=== PATIENT | female | born 1960 | race Caucasian/White ===

== ENCOUNTER → 2018-01-27 | Outpatient (CLI) | payer OTHER ==
[~2018-01-27] MED LIST: ALBU6.7H INH; COMMODE 3-IN-11 MIS; CPMMACHINE; DICL75TA PO; DIPH25TA31 PO; ENAL10TA PO; ENOX40P SQ; LEVO.125 PO; LEVO112T2 PO; MIRA3350 PO; NORC10TA2 PO; POLY119S PO; PREM0.3T2 PO; SYMB160A INH; TRAM50TA PO; WALKER WHEELS/F1 MIS; Z.0.COMMODE-3:1; Z.0.CPM; Z.0.WALKERFRONT
== END ==
LOC: CPRE 09:16
PROVIDERS: ATTEND Orthopaedic Surgery
DX: Z01.818 Encounter for other preprocedural examination (principal)

== ENCOUNTER 2018-02-12 05:18 | Inpatient (IN) | payer OTHER ==
[~2018-02-12] VITALS: Ht 167.6 cm; Wt 78.2 kg
[~2018-02-12 05:18] MED LIST changes: -CPMMACHINE; -DIPH25TA31 PO; -ENOX40P SQ; -LEVO.125 PO; -NORC10TA2 PO; -POLY119S PO; -Z.0.COMMODE-3:1; -Z.0.CPM; -Z.0.WALKERFRONT
[2018-02-12] MEDS ORDERED: POVIDONE IODINE 5% (ANTISEPSIS KIT) 4 APPLICATIONS EACH NARE PRN (05:45)
[2018-02-12] MEDS ORDERED: POVIDONE IODINE 7.5% SCRUB 118 ML BOTTLE TOPICAL SCH (05:45)
[2018-02-12] MEDS ORDERED: INSULIN HUMAN REGULAR 1,000 UNITS/10 ML VIAL SQ PRN (05:45)
[2018-02-12] MEDS ORDERED: DEXAMETHASONE SOD PHOS 20 MG/5 ML VIAL IV PUSH ONE (05:45)
[2018-02-12] MEDS ORDERED: CHLORHEXIDINE GLUCONATE 4% SOLN 120 ML BTL TOPICAL SCH (05:45)
[2018-02-12] MEDS ORDERED: SODIUM CHLORID 0.9% 500 ML IV PRN (05:45)
[2018-02-12] MEDS ORDERED: ceFAZolin 2 GM PREMIX 50 ML IV SCH (05:45)
[2018-02-12] MEDS ORDERED: CHLORHEXIDINE GLUCONATE 2 % 1 PACK (2 CLOTHS) TOPICAL PRN (05:45)
[2018-02-12] MEDS ORDERED: LACTATED RINGER'S 1000 ML IV PRN (05:45)
[2018-02-12] MEDS ORDERED: METOPROLOL TARTRATE 25 MG TAB PO PRN (05:45)
[2018-02-12] MEDS ORDERED: TRANEXAMIC ACID IV SCH ×2 (06:00→10:00)
[2018-02-12] MEDS ORDERED: VANCOMYCIN 1 GM/200 ML PREMIX ON-CALL IV SCH (06:00)
[2018-02-12] MEDS ORDERED: SODIUM CHLORIDE 0.9% IV SCH ×2 (06:00→10:00)
[2018-02-12] MEDS ORDERED: DIPH25TA31 PO (06:03)
[2018-02-12] MEDS ORDERED: GENTAMICIN SULFATE 80 MG/2 ML VIAL ONE (06:11)
[2018-02-12 06:14] VITALS: PULSE 69
[2018-02-12] MEDS ORDERED: ACETAMINOPHEN 1000 MG/100 ML 100 ML IV ONE (06:14)
[2018-02-12] MEDS ORDERED: FAT EMULSION 20% INJ 0 ML ONE (06:31)
[2018-02-12] MEDS ORDERED: BUPIVACAINE LIPOSOME PF 1.3% 20 ML VIAL ONE (06:38)
[2018-02-12] MEDS ORDERED: BUPIVACAINE PF 0.75% DEX-WATER INJ 2 ML AMP ONE ×2 (06:40→06:53)
--- NOTE | 2018-02-12 06:58 | HHI.DCPOC ---
Discharge Care Plan Diagnosis: (1) Status post total knee replacement, right (2) Primary localized osteoarthrosis, lower leg Your Health Problems Are: Difficulty with ADL Goals to Promote Your Health * To prevent worsening of your condition and complications * To maintain your health at the optimal level Directions to Meet Your Goals Take your medications as prescribed Follow your dietary instruction Follow activity as directed Keep your appointments as scheduled Take your immunizations and boosters as scheduled If your symptoms worsen call your PCP, if no PCP go to Urgent Care Center or Emergency Room Smoking is Dangerous to Your Health. Avoid second hand smoke Call the 24-hour hour crisis hotline for domestic abuse at Fam Arnold Feb 12, 2018 06:58
[2018-02-12] MEDS ORDERED: ROPIVACAINE PERI-ARTICULAR INJECTION. P-ARTICULR SCH ×5 (07:00)
--- NOTE | 2018-02-12 07:00 | HHI.FF ---
Face to Face Verification Diagnosis: (1) Primary localized osteoarthrosis, lower leg (2) Status post total knee replacement, right Physical Therapy Gait training, Transfer training, bed to chair Knee: Total knee Right LE Weight Bearing: WB as tolerated Right LE Range of Motion: Active ROM Nursing Nursing: Omari kong Dressing Changes: Do not change dressing Additional Instructions First dressing change in the office. I have seen patient Betsy Fuentes on 02/12/18. My clinical findings support the need for the requested home health care services because: Limited ability to care for self High risk of falls I certify that my clinical findings support that this patient is homebound because: Post-op weakness Unsteady gait/balance Fam Arnlod Feb 12, 2018 07:00
[2018-02-12] MEDS ORDERED: COMMODE 3-IN-11 MIS (07:02)
[2018-02-12] MEDS ORDERED: WALKER WHEELS/F1 MIS (07:02)
[2018-02-12] MEDS ORDERED: CPMMACHINE (07:02)
--- NOTE | 2018-02-12 08:40 | PD.OP ---
cc: Arian Wylie MD Operative Report Date of Surgery: Feb 12, 2018 Preoperative Diagnosis: Right knee severe arthritis Postoperative Diagnosis: Same Procedure: Right total knee arthroplasty Anesthesia: Spinal and adductor canal block Surgeon: Arian Wylie Supervising Law Enforcement Analyst(s): KARI Park The surgical procedure was assisted by my Advanced Registered Nurse Practitioner. My CARD WRITER HAND presence was necessary throughout this case for the manipulation and positioning of the surgical extremity. My CARD WRITER HAND was assisting me throughout the duration of this procedure. The skill set of an Advance Registered Nurse Practitioner was medically necessary to complete this procedure. During the surgical case, the factory maintenance technician was working at the back table and the Advance Registered Nurse Practitioner was directly assisting me. Operation and Findings: IMPLANTS: DePuy Attune: Patella: size 35. Femur, posterior stabilized size 6 narrow. Tibia, rotating platform size 5. Tibial insert, rotating platform, posterior stabilized size 5 mm thickness. ESTIMATED BLOOD LOSS: 75 cc TOURNIQUET TIME: 39 minutes at 250 mmHg pressure. JUSTIFICATION FOR PROCEDURE: The patient has end-stage osteoarthritis to the knee. There is an attached conservative measures pathway form in the chart that describes the nonoperative measures that were undertaken prior to consideration of surgical management. The patient understood the risks and benefits of surgical management. See my office notes for further details PROCEDURE: The patient was brought back to the operative theatre. Adequate anesthesia was obtained. The patient received intravenous vancomycin and Ancef. The lower extremity was prepped and draped in the usual sterile fashion.The leg was exsanguinated, the tourniquet was raised. A standard anterior incision was performed followed by medial parapatellar arthrotomy was performed. End-stage arthritis was identified. Osteotomy of the patella was performed. We drilled holes for the patella. We trialed the patella component. We placed an intramedullary guide into the distal femur. We ultimately resected 13 mm off of the distal femur in 5 degrees of valgus. The remnants of the ACL and PCL were resected. Osteotomy of the proximal tibia was performed, resecting 5 mm off of the medial side. This was done with 3 degrees of posterior slope using an extramedullary guide. The distal end of the guide was placed in the mid aspect of the ankle. The femur was sized, and four chamfer cuts were completed in 3 of external rotation. We then cut the central box in the distal femur to replace the PCL. We resected the remnants of the menisci and removed osteophytes off of the femur and tibia. We then trialed the knee. We punched the tibia for the keel, and then used standard technique to cement in components. Excess cement was removed. We trialed the knee again and the final polyethylene thickness was chosen to provide extension to 0 degrees, and flexion of 140 degrees to gravity. The ligaments were appropriately balanced. Lateral release was necessary to obtain excellent patellofemoral tracking. The tourniquet was released and adequate hemostasis was obtained. An intra- articular injection of a ropivacaine cocktail was injected. The posterior knee was inspected for excess cement, which was removed. The final polyethylene was put into position after thorough irrigation. We then closed deep fascia with a #2 Stratafix followed by skin with 2-0 Vicryl followed by Dermabond dressing. Postop plan is to weight-bear as tolerated. DVT prophylaxis will be performed with Lisandra, THERESA gamez, early mobilization, and Lovenox followed by aspirin. Arian Wylie MD Feb 12, 2018 08:40
[2018-02-12] MEDS ORDERED: ZOLPIDEM TARTRATE 5 MG TAB PO PRN (08:45)
[2018-02-12] MEDS ORDERED: ALUMINUM/MAGNESIUM/SIMETH 30 ML CUP PO PRN (08:45)
[2018-02-12] MEDS ORDERED: BISACODYL 10 MG SUPP RECTAL PRN (08:45)
[2018-02-12] MEDS ORDERED: ACETAMINOPHEN/HYDROcodone 325 MG/5 MG TAB PO PRN (08:45)
[2018-02-12] MEDS ORDERED: diphenhydrAMINE HCL 50 MG/ML VIAL IV PUSH PRN (08:45)
[2018-02-12] MEDS ORDERED: MORPHINE SULFATE 4 MG/ML INJ IV PUSH PRN (08:45)
[2018-02-12] MEDS ORDERED: Post-op Orders (for Pharmacy) XX ONE (08:45)
[2018-02-12] MEDS ORDERED: ALBUTEROL SULFATE 90 MCG/ACT HFA 8 GM INHALER INH PRN (08:45)
[2018-02-12] MEDS ORDERED: MAGNESIUM HYDROXIDE SUSP 30 ML CUP PO PRN (08:45)
[2018-02-12] MEDS ORDERED: NALOXONE HCL 0.4 MG/ML AMP IV PUSH PRN (08:45)
[2018-02-12] MEDS: BUDESONIDE-FORMOTEROL 160/4.5 MCG INHALER INH SCH ×2 (09:00→21:00)
[2018-02-12] MEDS ORDERED: POLYETHYLENE GLYCOL 17 GM PKG PO SCH ×3 (09:00→23:30)
[2018-02-12] MEDS: ENALAPRIL MALEATE 10 MG TAB PO SCH (09:00)
[2018-02-12] MEDS: SODIUM CHLOR 0.9% 1000 ML INJ 1,000 ML IV SCH ×2 (09:10→18:35)
[2018-02-12] MEDS ORDERED: MIDAZOLAM HCL 2 MG/2 ML VIAL ONE (09:11)
[2018-02-12] MEDS ORDERED: ONDANSETRON ODT 4 MG TAB SL PRN (09:15)
[2018-02-12] MEDS ORDERED: DO NOT ADM ANY ANTICOAGULANT DRUGS PRN (09:30)
--- NOTE | 2018-02-12 09:59 | RADRPT ---
EXAM DATE: 02/12/2018 9:52 AM EDT AGE/SEX: 57 years / Female INDICATIONS: Post-operative, total right knee replacement. CLINICAL DATA: This is the patient's initial encounter. Patient reports that signs and symptoms have been present for 1 day and indicates a pain score of 0/10. MEDICAL/SURGICAL HISTORY: None. . Prior right knee scope. COMPARISON: No prior exams available for comparison. FINDINGS: The patient is status post placement of total knee prosthesis. The prostatic components are well plac ed. There is air within the joint space and the soft tissues which is an expected postoperative findi ng. CONCLUSION: Successful total knee replacement. Electronically signed by: Diego Jaime MD 02/12/2018 9:58 AM EDT
[2018-02-12 12:00] VITALS: BP 140/86; PULSE 76; RESP 16; TEMP 97.6; O2SAT 98
[2018-02-12] MEDS ORDERED: ePHEDrine/NS 25 MG/5 ML SYRINGE IV ONE (12:00)
[2018-02-12] MEDS ORDERED: ONDANSETRON HCL 4 MG/2 ML VIAL IV PUSH ONE (12:00)
[2018-02-12] MEDS ORDERED: PROPOFOL 200 MG/20 ML AMP IV ONE (12:00)
[2018-02-12] MEDS ORDERED: LACTATED RINGER'S 1000 ML INJ 1,000 ML IV ONE (12:00)
--- NOTE | 2018-02-12 13:08 | PD.CONS ---
HPI Service [facility] Consult Requested By Dr. Wylie Reason for Consult Opinion and recommendation of treatment patient's hypertension, hypothyroidism Primary Care Physician [facility] Diagnoses: History of Present Illness 57-year-old white female with a history of hypertension, hypothyroidism, asthma , osteoarthritis was had long-term history of right hip pain despite conservative treatment. She electively underwent a right total hip arthroplasty with orthopedic surgery Dr. Wylie today. She states prior to the surgery she took MiraLAX daily and did not have any constipation problems. In the past she has had hemorrhoids that has been resolved. In addition she had no complaints of blood in the stools or black tarry stools. Review of Systems Constitutional: DENIES: Fatigue, Fever, Chills, Change in appetite Endocrine: DENIES: Heat/cold intolerance Eyes: DENIES: Blurred vision, Eye pain, Vision loss Ears, nose, mouth, throat: DENIES: Hearing loss, Nasal discharge, Throat pain, Ear Pain, Sinus Pain Respiratory: DENIES: Cough, Shortness of breath Cardiovascular: DENIES: Chest pain, Palpitations, Dyspnea on Exertion, Lower Extremity Edema Gastrointestinal: DENIES: Abdominal pain, Black stools, Bloody stools, Constipation, Diarrhea, Nausea, Vomiting Genitourinary: DENIES: Dysuria Musculoskeletal: COMPLAINS OF: Joint pain (Left knee pain), DENIES: Muscle aches, Stiffness Integumentary: DENIES: Rash Hematologic/lymphatic: DENIES: Bruising, Lymphadenopathy Immunologic/allergic: DENIES: Eczema Neurologic: DENIES: Headache, Localized weakness, Paresthesias Psychiatric: DENIES: Anxiety, Depression, Suicidal Ideation Past Family Social History Allergies: Coded Allergies: meloxicam (Unverified Allergy, Severe, Swelling, 01/27/18) facial swelling Past Medical History Hypertension Hypothyroidism Osteoarthritis Asthma Past Surgical History Cholecystectomy Bilateral tubal ligation Left shoulder arthroscopic Bilateral knee arthroscopic Left total knee arthroplasty Reported Medications Acetaminophen/diphenhydramine 2 tablets p.o. nightly Albuterol inhaler 2 puffs every 4 P26 as needed for shortness of breath Symbicort 2 puffs inhaler every 12 hours Diclofenac 75 mg p.o. daily Enalapril 10 mg p.o. daily Estrogen/medroxyprogesterone 1 p.o. daily Levothyroxine 112 MCG's p.o. daily Polyethylene glycol 17 g p.o. daily Tramadol 50 mg p.o. every 4 hours as needed for pain Family History Noncontributory Social History Does not smoke cigarettes Physical Exam Vital Signs Vital Signs Date Time Temp Pulse Resp B/P (MAP) Pulse Ox O2 Delivery O2 Flow Rate FiO2 02/12/18 09:06 97.5 69 14 125/75 (92) 100 Nasal Cannula 2 02/12/18 06:14 100 Nasal Cannula 2 02/12/18 06:14 69 02/12/18 06:08 98.2 63 18 161/87 (111) 99 Physical Exam GENERAL: This is a well-nourished, well-developed patient, in no apparent distress. SKIN: No rashes, ecchymoses or lesions. Cool and dry. HEAD: Atraumatic. Normocephalic. No temporal or scalp tenderness. EYES: Pupils equal round and reactive. Extraocular motions intact. No scleral icterus. No injection or drainage. ENT: Nose without bleeding, purulent drainage or septal hematoma. NECK: Trachea midline. No JVD or lymphadenopathy. Supple, nontender, no meningeal signs. CARDIOVASCULAR: Regular rate and rhythm RESPIRATORY: Clear to auscultation. Breath sounds equal bilaterally. No wheezes , rales, or rhonchi. GASTROINTESTINAL: Abdomen soft, non-tender, nondistended. No hepato-splenomegaly , or palpable masses. No guarding. MUSCULOSKELETAL: Extremities without clubbing, cyanosis, or edema. Bilateral SCDs in place NEUROLOGICAL: Awake and alert. Cranial nerves II through XII intact. Motor and sensory grossly within normal limits. Normal speech. Assessment and Plan Assessment and Plan 1. Status post operative right total knee arthroplasty continue postoperative care, pain control, physical therapy per orthopedic surgery Dr. Wylie. 2. Hypertension, chronic essential . resume home. Enalapril. Vasotec IV as needed for any uncontrolled blood pressure.Further recommendations based on blood pressure trends 3. Hypothyroidism resume home levothyroxine 4. 4. DVT prophylaxis Lovenox Thank you for this consultation Niurka Crook MD Feb 12, 2018 13:08
[2018-02-12] MEDS: ACETAMINOPHEN/HYDROcodone 325 MG/5 MG TAB PO PRN ×3 (13:21→21:29)
[2018-02-12] MEDS ORDERED: ENALAPRILAT 1.25 MG/ML VIAL IV PUSH PRN (14:30)
[2018-02-12 16:00] VITALS: BP 158/93; PULSE 100; RESP 16; TEMP 97.3; O2SAT 99
[2018-02-12 19:31] VITALS: BP 128/77; PULSE 91; RESP 18; TEMP 97.3; O2SAT 96
[2018-02-12 20:05] VITALS: O2SAT 99
[2018-02-12 23:58] VITALS: BP 127/76; PULSE 65; RESP 18; TEMP 97.5; O2SAT 97
[2018-02-13] MEDS: POLYETHYLENE GLYCOL 17 GM PKG PO SCH ×2 (00:15→08:49)
[2018-02-13] MEDS: ACETAMINOPHEN/HYDROcodone 325 MG/5 MG TAB PO PRN ×5 (01:18→16:47)
[2018-02-13] MEDS: SODIUM CHLOR 0.9% 1000 ML INJ 1,000 ML IV SCH ×2 (04:35→14:35)
[2018-02-13 05:32] VITALS: BP 148/89; PULSE 71; RESP 18; TEMP 98.1; O2SAT 97
[2018-02-13 05:40] LABS: HEMATOCRIT 28.6 % (35.0-46.0); HEMOGLOBIN 9.7 GM/DL (11.6-15.3); MEAN CELL VOLUME 85.1 FL (80.0-100.0); MEAN CORPUSCULAR HEMOGLOBIN 28.8 PG (27.0-34.0); MEAN CORPUSCULAR HGB CONC 33.8 % (32.0-36.0); MEAN PLATELET VOLUME 7.5 FL (7.0-11.0); PLATELET COUNT 212 TH/MM3 (150-450); RED BLOOD COUNT 3.36 MIL/MM3 (4.00-5.30); RED CELL DISTRIBUTION WIDTH 13.6 % (11.6-17.2); WHITE BLOOD COUNT 11.3 TH/MM3 (4.0-11.0)
[2018-02-13] MEDS ORDERED: LEVOTHYROXINE SODIUM 112 MCG TAB PO SCH (06:00)
[2018-02-13] MEDS ORDERED: DEXAMETHASONE SOD PHOS 20 MG/5 ML VIAL IV ONE (07:45)
[2018-02-13 08:00] VITALS: BP 132/78; PULSE 71; RESP 19; TEMP 97.7; O2SAT 99
[2018-02-13] MEDS ORDERED: ENOXAPARIN SODIUM 40 MG/0.4 ML SYRINGE SQ SCH (08:00)
[2018-02-13] MEDS: ENALAPRIL MALEATE 10 MG TAB PO SCH (08:49)
[2018-02-13] MEDS: BUDESONIDE-FORMOTEROL 160/4.5 MCG INHALER INH SCH (09:00)
[2018-02-13] MEDS ORDERED: CONJUGATED ESTROGENS PO SCH (09:00)
[2018-02-13] MEDS ORDERED: MEDROXYPROGESTERONE PO SCH (09:00)
--- NOTE | 2018-02-13 09:12 | HHI.PR ---
Subjective Remarks Patient states that her pain is controlled well. Had a good night. No other concerns at this time. Objective Vitals Vital Signs Date Time Temp Pulse Resp B/P (MAP) Pulse Ox O2 Delivery O2 Flow Rate FiO2 02/13/18 05:32 98.1 71 18 148/89 (108) 97 02/12/18 23:58 97.5 65 18 127/76 (93) 97 02/12/18 20:05 99 02/12/18 19:31 97.3 91 18 128/77 (94) 96 02/12/18 18:15 18 02/12/18 16:00 97.3 100 16 158/93 (114) 99 02/12/18 12:00 97.6 76 16 140/86 (104) 98 02/12/18 12:00 64 14 151/86 (107) 97 Room Air 02/12/18 11:00 98.1 74 14 144/84 (104) 100 Room Air 02/12/18 10:45 77 14 144/88 (106) 100 Room Air 02/12/18 10:30 72 14 131/77 (95) 99 Room Air 02/12/18 10:15 60 14 140/85 (103) 99 Room Air 02/12/18 10:00 61 14 139/81 (100) 100 Nasal Cannula 2 02/12/18 09:45 59 14 138/84 (102) 100 Nasal Cannula 2 02/12/18 09:30 60 14 139/78 (98) 100 Nasal Cannula 2 02/12/18 09:15 64 14 127/80 (96) 100 Nasal Cannula 2 I/O 02/12/18 02/12/18 02/12/18 02/13/18 02/13/18 02/13/18 07:00 15:00 23:00 07:00 15:00 23:00 Intake Total 2000 ml 360 ml Output Total 775 ml Balance 1225 ml 360 ml Intake Oral 360 ml Other 2000 ml Output Urine Total 700 ml Estimated Blood Loss 75 ml # Voids 3 # Bowel Movements 0 Result Diagram: 02/13/18 0510 Objective Remarks GENERAL: This is a well-nourished, well-developed patient, in no apparent distress. CARDIOVASCULAR: Regular rate and rhythm RESPIRATORY: Clear to auscultation. Breath sounds equal bilaterally. No wheezes , rales, or rhonchi. MUSCULOSKELETAL: Right knee bandage clean dry intact NEURO: Alert & Oriented x4 to person, place, time, situation. Moves all ext x4 A/P Assessment and Plan 1. Status post operative day #1 right total knee arthroplasty continue postoperative care, pain control, physical therapy per orthopedic surgery Dr. Wylie. 2. Hypertension, chronic essential . Overall blood pressure controlled. Resume home enalapril. Vasotec IV as needed for any uncontrolled blood pressure. 3. Hypothyroidism resume home levothyroxine 4. DVT prophylaxis Lovenox Discharge Planning Home with home health care when cleared by orthopedic surgery Niurka Crook MD Feb 13, 2018 09:12
[2018-02-13 10:00] VITALS: O2SAT 99
[2018-02-13 12:00] VITALS: BP 142/137; PULSE 89; RESP 18; TEMP 97.7; O2SAT 100
[2018-02-13 15:13] VITALS: BP 137/82; PULSE 77; RESP 18; TEMP 98.1; O2SAT 98
--- NOTE | 2018-02-13 18:11 | PD.ORT.PN ---
Subjective Post Op Day #: 1 Subjective Remarks Patient resting in bed in NAD. Patient has been ambulatory and is having mild pain to the right knee. The patient states she is waiting on her ride for discharge. Objective Vitals Vital Signs Date Time Temp Pulse Resp B/P (MAP) Pulse Ox O2 Delivery O2 Flow Rate FiO2 02/13/18 15:13 98.1 77 18 137/82 (100) 98 02/13/18 12:00 97.7 89 18 142/137 (139) 100 02/13/18 10:00 99 21 02/13/18 08:00 97.7 71 19 132/78 (96) 99 02/13/18 05:32 98.1 71 18 148/89 (108) 97 02/12/18 23:58 97.5 65 18 127/76 (93) 97 02/12/18 20:05 99 02/12/18 19:31 97.3 91 18 128/77 (94) 96 02/12/18 18:15 18 I/O 02/12/18 02/12/18 02/12/18 02/13/18 02/13/18 02/13/18 07:00 15:00 23:00 07:00 15:00 23:00 Intake Total 2000 ml 360 ml Output Total 775 ml Balance 1225 ml 360 ml Intake Oral 360 ml Other 2000 ml Output Urine Total 700 ml Estimated Blood Loss 75 ml # Voids 3 5 # Bowel Movements 0 1 Result Diagram: 02/13/18 0510 Procedures Right TKA Objective Remarks Dressing is C/D/I. EHL/TA/G intact. 2+ pedal pulse. Calf is soft and nontender. + SILT distally. Assessment & Plan Ortho Post Op Day #: 1 Problem List: Assessment and Plan POD #1: Right TKA 1. WBAT RLE 2. Lovenox followed by ASA for DVT prophylaxis 3. Ice to the right knee PRN 4. Stable per ortho for discharge home with home health 5. F/U in the office as previously scheduled with Dr. Wylie or KARI Luevano. Fam Arnold Feb 13, 2018 18:11
--- NOTE | 2018-02-13 18:15 | HHI.DS ---
Discharge Summary Admission Date Feb 12, 2018 at 05:18 Discharge Date: Feb 13, 2018 Admitting Diagnosis Primary localized OA, lower leg Status post total knee replacement, right Diagnosis: (1) Primary localized osteoarthrosis, lower leg Diagnosis: Principal ICD Codes: M17.10 - Unilateral primary osteoarthritis, unspecified knee Status: Acute (2) Status post total knee replacement, right Diagnosis: Principal ICD Codes: Z96.651 - Presence of right artificial knee joint Procedures Right TKA Brief History This is a 57 year old female patient with severe OA of the right knee. CBC/BMP: 02/13/18 0510 Significant Findings Laboratory Tests Test 02/13/18 05:10 White Blood Count 11.3 TH/MM3 (4.0-11.0) Red Blood Count 3.36 MIL/MM3 (4.00-5.30) Hemoglobin 9.7 GM/DL (11.6-15.3) Hematocrit 28.6 % (35.0-46.0) PE at Discharge Dressing is C/D/I. EHL/TA/G intact. 2+ pedal pulse. Calf is soft and nontender. + SILT distally. Hospital Course The patient was admitted to the hospital for severe OA of the right knee to have a right TKA. The patient's surgery went well without complication. The patient is WBAT. The patient is on a regular diet. The patient was placed on Lovenox followed by ASA for DVT prophylaxis. The patient was discharged home with home health and will f/u in the office with as previously scheduled with Dr. Ray or KARI Luevano. Pt Condition on Discharge: Stable Discharge Disposition: Disch w/ Home Health Serv Discharge Instructions Diet Instructions: As Tolerated, No Restrictions Activities You Can Perform: Weight Bearing as Nanda Activities to Avoid: Strenuous Activity Follow up Referrals: Appointment for Follow Up @ [facility] New Medications: Commode 3-in-1 (Commode 3-in-1) 1 Mis Mis EA .XX DIRECTED, #1 0 Refills CPM-Continuous Passive Motion Machine (CPM-Continuous Passive Motion Machine) 1 Ea Device EA .XX DIRECTED, #1 0 Refills Walker with Front Wheels (Walker with Front Wheels) 1 Mis Mis EA .XX DIRECTED, #1 0 Refills Continued Medications: Albuterol 6.7 GM Inh (Proventil Hfa 6.7 GM Inh) 90 Mcg/Act Aer 2 PUFF INH Q4-6H PRN for SHORTNESS OF BREATH, #1 INHALER 0 Refills Budesonide-Formoterol Inh (Symbicort Inh) 160-4.5 Mcg/Act Aero 2 PUFF INH Q12HR, #1 INHALER 0 Refills Conjugated Estrogens-Medroxyprogesterone (Prempro Blister Pack) 0.3-1.5 Mg Tab 1 TAB PO DAILY for Estrogen Supplements, #1 PACK 0 Refills Enalapril (Enalapril) 10 Mg Tab 10 MG PO DAILY, #30 TAB 0 Refills Levothyroxine (Levothyroxine) 112 Mcg Tab 112 MCG PO DAILY for Thyroid, #30 TAB 0 Refills Polyethylene Glycol 3350 Powder (Miralax Powder) 17 Gm Powd 17 GM PO DAILY for Constipation, #1 CAN 0 Refills Mix and dissolve one measuring cap-ful (17 grams) in water or juice. Discontinued Medications: Acetaminophen/Diphenhydramine (Acetaminophen Pm Caplet) 500 Mg-25 Mg Tablet 2 TAB PO HS Diclofenac Sodium DR (Diclofenac Sodium DR) 75 Mg Tabdr 75 MG PO DAILY, #30 TAB 0 Refills Tramadol (Tramadol) 50 Mg Tab 50 MG PO Q4H PRN for PAIN, TAB 0 Refills Fam Arnold Feb 13, 2018 18:15
[2018-02-13] MEDS ORDERED: MULTIVITAMINS/MINERALS THERAPEUTIC TAB PO SCH (21:00)
[2018-02-13] MEDS ORDERED: DOCUSATE SODIUM 100 MG CAP PO SCH (21:00)
== END 2018-02-13 19:20 | disposition home health service (06) | DRG 470 ==
LOC: HSDI 05:18 → N06A 12:31
PROVIDERS: ADMIT Orthopaedic Surgery; ATTEND Orthopaedic Surgery
PROC: 3E0T3BZ Introduction of Anesthetic Agent into Peripheral Nerves and Plexi, Percutaneous Approach (ICD-10-PCS; 2018-02-12)
PROC: 0SRC0J9 Replacement of Right Knee Joint with Synthetic Substitute, Cemented, Open Approach (ICD-10-PCS; principal; 2018-02-12 06:53)
DX: M17.11 Unilateral primary osteoarthritis, right knee (principal); I10 Essential (primary) hypertension; M25.761 Osteophyte, right knee; E03.9 Hypothyroidism, unspecified; J45.909 Unspecified asthma, uncomplicated; Z96.652 Presence of left artificial knee joint; Z87.891 Personal history of nicotine dependence
CPT/HCPCS: 73560; 85027; 86850; 86900; 86901; 94150; C1776; C9290; J0131; J0690; J0735; J1100; J1580; J1650; J1885; J2250; J2405; J2795; J3370; J7030; J7120; L1830